=== PATIENT | male | born 1960 | race Caucasian/White ===

== ENCOUNTER 2018-05-10 12:06 | Emergency (ER) | payer OTHER ==
[~2018-05-10] VITALS: Ht 177.8 cm; Wt 100.7 kg
[~2018-05-10 12:06] MED LIST: ALBU2.5V IH; AMLO5TAB PO; ASPI81CT89 PO; ATOR40TA PO; CLON1TAB PO; DIVA250E1 PO; DIVA500T1 PO; GLIP10TA3 PO; METF500T2 PO; NICO1PAT16 TP; OLAN2.5T1 PO; PAX20 PO; TEMA15CA24 PO
--- NOTE | 2018-05-10 12:06 | NUR ---
PT BIBA BLS TO BED 9
[2018-05-10 12:15] VITALS: BP 124/73
--- NOTE | 2018-05-10 12:25 | NUR ---
56 y/o M. STATES ANXIETY DUE TO CURRENT LIVING CONDITIONS. STATES PEOPLE ARE "STEALING FROM HIM AND DOING DRUGS AROUND HIM ALL THE TIME". DENIES PAIN. VSS. DRY COUGH NOTED PATIENT STATES HE HAS BEEN SMOKING FOR MANY YEARS. DENIES N/V/D; SKIN IS PINK/WARM/DRY; AAOX4 WITH EVEN AND STEADY GAIT; LUNGS CLEAR BL; HR EVEN AND REGULAR; PT DENIES ANY FEVER, CP, SOB, OR COUGH AT THIS TIME; PATIENT STATES PAIN OF 0/10 AT THIS TIME; VSS; PATIENT POSITIONED FOR COMFORT; HOB ELEVATED; BEDRAILS UP X2; BED DOWN. ER MD MADE AWARE OF PT STATUS.
--- NOTE | 2018-05-10 13:52 | NUR ---
SPOKE TO ANASTACIO FROM BRIEF WRITER AND WILL COME TO SEE PATIENT. PATIENT MADE AWARE.
--- NOTE | 2018-05-10 14:19 | NUR ---
Spoke with Daisy fernandez. stated that the patient has an assigned public conservator and thats who he would need to contact to find a new place to live. tried to explain that to the patient he did not state understand. will call Daisy to have her follow up.
--- NOTE | 2018-05-10 14:24 | NUR ---
Spoke with public Starriser office @[phone]. She stated that the patient has called 10 times today and has been told that they will call him back when his conservator gets back into the office. But he just keeps calling them.
--- NOTE | 2018-05-10 14:27 | NUR ---
ANASTACIO FROM MANAGER UNIT,WILL COME SEE THE PATIENT.
--- NOTE | 2018-05-10 14:50 | NUR ---
VERNA FROM HOME SECURITY ALARM INSTALLER SEEN PATIENT AND GAVE INSTRUCTIONS TO PATIENT
--- NOTE | 2018-05-10 14:57 | NUR ---
Senior Specialist Note: I called [facility] to ask if patient is self responsible or conserved, phone line was busy. Patient's face sheet currently has "Clayton Lissyeddie" listed as patient's brother. I dialed , Natalie from Public Guardian office answered. Per quality associate Natalie, patient is conserved and his public guardian is Clayton Amador. She stated Clayton is currently not available, however, officer of duty Sonia is available. I spoke with Sonia, she stated patient will have to return to [facility] upon discharge.
--- NOTE | 2018-05-10 15:00 | NUR ---
Patient discharged with v/s stable. Written and verbal after care instructions given and explained. Patient verbalized understanding. Ambulatory with steady gait. All questions addressed prior to discharge. Advised to follow up with PMD. [facility] CALLED FOR PATIENT.
[2018-05-10 15:19] VITALS: BP 124/73
--- NOTE | 2018-05-10 15:20 | NUR ---
[facility] PROVIDED TO PATIENT.
--- NOTE | 2018-05-10 15:45 | NUR ---
SPOKE TO NURSE KNOWLES AT [facility] INFORMING HER THAT PATIENT IS RETURNING TO THE FACILITY.
--- NOTE | 2018-05-10 15:57 | NUR ---
ANISHA,PUBLIC GUARDIAN CALLED AND INFORMED ME THAT HE WILL CALL ELENI FROM [facility] THAT SARAHY MORALES IS OK TO RETURN TO THE FACILITY. ANISHA WILL ALSO INFORM THE PATIENT. STILL WAITING FOR THE TAXI
--- NOTE | 2018-05-10 16:00 | NUR ---
[facility] PICKED UP PATIENT
== END 2018-05-10 15:20 | disposition home or self-care (01) ==
LOC: MED 12:06
DX: F41.9 Anxiety disorder, unspecified (principal); F17.200 Nicotine dependence, unspecified, uncomplicated; E11.9 Type 2 diabetes mellitus without complications; I10 Essential (primary) hypertension; Z79.899 Other long term (current) drug therapy; Z88.8 Allergy status to other drugs, medicaments and biological substances; Z79.51 Long term (current) use of inhaled steroids; Z79.84 Long term (current) use of oral hypoglycemic drugs
CPT/HCPCS: 99284

== ENCOUNTER 2018-05-12 15:24 | Inpatient (IN) | payer OTHER ==
[~2018-05-12] VITALS: Ht 177.8 cm; Wt 102.1 kg
[2018-05-12 15:35] VITALS: BP 140/70
[2018-05-12] MEDS ORDERED: LORazepam 2 MG/ML VIAL IVP ONE (17:10)
[2018-05-12 17:42] LABS: BASOPHILS % (AUTO) 0.3 % (0.0-2.0); EOSINOPHILS # (AUTO) 0.1 K/uL (0-0.4); HEMATOCRIT 38.7 % (36-52); HEMOGLOBIN 12.8 g/dL (12.0-18.0); LYMPHOCYTES # (AUTO) 2.1 K/uL (2.0-11.5); LYMPHOCYTES % (AUTO) 28.3 % (20.5-51.1); MEAN CORPUSCULAR HEMOGLOBIN 31 pg (27-31); MEAN CORPUSCULAR HGB CONC 33 g/dL (33-37); MEAN CORPUSCULAR VOLUME 94.5 fL (80-94); MONOCYTES # (AUTO) 0.6 K/uL (0.8-1.0); MONOCYTES % (AUTO) 7.3 % (1.7-9.3); NEUTROPHILS # (AUTO) 4.7 K/uL (1.8-7.7); NEUTROPHILS % (AUTO) 62.1 % (42.2-75.2); PLATELET COUNT (AUTO) 238 K/uL (140-450); RED CELL DISTRIBUTION WIDTH 14.6 % (11.6-13.7); WHITE BLOOD COUNT (AUTO) 7.6 K/uL (4.8-10.8)
[2018-05-12 17:49] LABS: CARBON DIOXIDE 31.7 mmol/L (21-32); CHLORIDE 106 mmol/L (98-107); CREATININE 0.9 mg/dL (0.7-1.3); GFR ARICAN-AMERICAN 111 mL/min (>90); GLUCOSE 112 mg/dL (74-106); POTASSIUM 3.7 mmol/L (3.5-5.1); SODIUM SERUM 142 mmol/L (136-145); UREA NITROGEN, BLOOD 11 mg/dL (7-18)
[2018-05-12 17:58] LABS: ALBUMIN 2.7 g/dL (3.4-5.0); ASPARTATE AMINOTRANSFERASE 36 U/L (15-37); SALICYLATE 3.3 mg/dL (2.8-20.0); TOTAL BILIRUBIN 0.4 mg/dL (0.0-1.0)
[2018-05-12 18:08] LABS: ACETAMINOPHEN < 0.5 ug/ml (10-30)
--- NOTE | 2018-05-12 19:06 | NUR ---
PATIENT RETURNED FROM CT AT THIS TIME.
--- NOTE | 2018-05-12 19:06 | NUR ---
Liss silver in ED - 05/12/18 at 1917 by JF PT RETURN FROM RADIOLOGY
--- NOTE | 2018-05-12 19:07 | NUR ---
PT BACK FROM CT. RECEIVED REPORT FROM AM NURSE. PT RESTING IN BED COMFORTABLY, VSS, RR EVEN AND UNLABORED. ALL NEEDS MET AT THIS TIME.
[2018-05-12 20:11] LABS: BARBITURATE, URINE NEG. ng/ml (NEG <=200); BENZODIAZEPINE, URINE NEG. ng/mL (NEG <=200); CANNABINOID, URINE NEG. ng/mL (NEG <=50); COCAINE, URINE NEG. ng/mL (NEG <=300); OPIATE, URINE NEG. ng/mL (NEG <=2000); PHENCYCLIDINE SCREEN,URINE NEG. ng/mL (NEG <=25)
[2018-05-12 20:24] LABS: APPEARANCE,URINE CLEAR (CLEAR); BILIRUBIN,URINE NEGATIVE (NEGATIVE); BLOOD, URINE NEGATIVE (NEGATIVE); COLOR,URINE YELLOW (YELLOW); LEUKOCYTE ESTERASE ,URINE NEGATIVE (NEGATIVE); NITRITE, URINE NEGATIVE (NEGATIVE); UGLUCOSE NEGATIVE (NEGATIVE)
[2018-05-12] MEDS: NACL 0.9% 1,000 ML IV SCH (20:43)
[2018-05-12] MEDS ORDERED: DOCUSATE SODIUM 100 MG GELCAP PO PRN (20:45)
[2018-05-12] MEDS ORDERED: ONDANSETRON 4 MG/2 ML VIAL IM/IVP PRN (20:45)
[2018-05-12] MEDS ORDERED: ACETAMINOPHEN 325 MG TAB PO PRN (20:45)
[2018-05-12 21:14] LABS: PROTHROMBIN TIME 10.2 secs (10.8-13.4)
--- NOTE | 2018-05-12 21:25 | NUR ---
Patient will be admitted to care of DR. STEPHENS. Admited to TELE. Will go to room 107B. Belongings list completed. Report to STAR LEACH.
[2018-05-12 21:28] LABS: CHOL/HDL RATIO 3.2 (1-4.5); FREE T4 (FREE THYROXINE) 0.9 ng/dL (0.76-1.46); MAGNESIUM 1.2 mg/dL (1.8-2.4); THYROID STIMULATING HORMONE 1.04 uIU/mL (0.34-3.74)
--- NOTE | 2018-05-12 21:30 | NUR ---
RECEIVED FROM ER PER VIMAL AWAKE AND ALERT AT THIS TIME. DX. OF SEIZURE, HYPOGLYCEMIA. SKIN INTACT. NO EDEMA CTAB. TELEMETRY MONITORING. CARE PLANS FOR THE NIGHT DISCUSSED WITH HIM AND CALL LIGHT WITH IN REACH. ORIENTED X 4. CLEAR SPEECH.
[2018-05-12] MEDS ORDERED: OLAN15TA1 PO (21:57)
[2018-05-12] MEDS ORDERED: DEXTROSE 50% 50 ML SYR IVP PRN (22:00)
[2018-05-12] MEDS ORDERED: INSULIN LISPRO SLIDING SCALE 100 UNITS/ML VIAL SUBQ PRN (22:00)
[2018-05-12] MEDS ORDERED: MAG SULF 2000 MG/WATER PREMIX 50 ML IV SCH (22:30)
--- NOTE | 2018-05-12 23:40 | NUR ---
PATIENT UNABLE TO PERFORM INCENTIVE SPIROMETER, , UNIT LEFT AT BEDSIDE
[2018-05-13 01:20] VITALS: BP 111/76
--- NOTE | 2018-05-13 01:25 | NUR ---
PT. SLEEPING WELL. NO COMPLAINTS DONE. TELEMETRY MONITORING. CALL LIGHT WITH IN REACH.
[2018-05-13 04:49] VITALS: BP 140/82
[2018-05-13] MEDS: NACL 0.9% 1,000 ML IV SCH ×2 (05:57→10:35)
[2018-05-13] MEDS: BLOOD GLUCOSE MONITORING 1 DEV DEV FS SCH ×4 (05:57→21:30)
[2018-05-13 07:01] LABS: BASOPHILS % (AUTO) 0.2 % (0.0-2.0); EOSINOPHILS # (AUTO) 0.2 K/uL (0-0.4); EOSINOPHILS % (AUTO) 3.3 % (0.0-4.0); HEMATOCRIT 40.5 % (36-52); HEMOGLOBIN 13.5 g/dL (12.0-18.0); LYMPHOCYTES # (AUTO) 2.1 K/uL (2.0-11.5); LYMPHOCYTES % (AUTO) 32.6 % (20.5-51.1); MEAN CORPUSCULAR HEMOGLOBIN 31 pg (27-31); MEAN CORPUSCULAR HGB CONC 33 g/dL (33-37); MEAN CORPUSCULAR VOLUME 93.6 fL (80-94); MONOCYTES # (AUTO) 0.6 K/uL (0.8-1.0); MONOCYTES % (AUTO) 9.1 % (1.7-9.3); NEUTROPHILS # (AUTO) 3.5 K/uL (1.8-7.7); NEUTROPHILS % (AUTO) 54.8 % (42.2-75.2); PLATELET COUNT (AUTO) 226 K/uL (140-450); RED BLOOD CELL COUNT(AUTO) 4.33 MIL/uL (4.20-6.10); RED CELL DISTRIBUTION WIDTH 14.6 % (11.6-13.7); WHITE BLOOD COUNT (AUTO) 6.4 K/uL (4.8-10.8)
[2018-05-13 07:15] LABS: ANION GAP 8.5 (8-16); CARBON DIOXIDE 32.5 mmol/L (21-32); CREATININE 0.7 mg/dL (0.7-1.3)
[2018-05-13 07:16] LABS: MAGNESIUM 1.8 mg/dL (1.8-2.4); PHOSPHORUS 3.4 mg/dL (2.5-4.9)
--- NOTE | 2018-05-13 07:20 | NUR ---
RECEIVED PT REPORT FROM OPTOMETRIC TECH RN. PT IS AAOX3. DX. OF SEIZURE, HYPOGLYCEMIA. ON TELE. IV TO THE RIGHT FA 20G, INFUSING NS, ASYMPTOMATIC. PT IS AMB WITH STANDBY ASSISTANCE. BED ALARM ON, FALL PRECAUTION IN PLACE. CALL LIGHT WITHIN REACH.
--- NOTE | 2018-05-13 07:22 | NUR ---
SLEPT WELL. NO SOB. NO SEIZURES NOTED THIS SHIFT. TELEMETRY MONITORING. ENDORSED TO THE NEXT RN FOR CONTINUITY OF CARE. PT.
[2018-05-13 08:00] VITALS: BP 146/79
--- NOTE | 2018-05-13 08:18 | NUR ---
PATIENT HAS BEEN SCREENED AND CATEGORIZED MODERATE NUTRITION RISK. PATIENT WILL BE SEEN WITHIN 3-5 DAYS OF ADMISSION. 05/15/18 05/17/[address]
--- NOTE | 2018-05-13 08:36 | NUR ---
PATIENT PREVIOUSLY TRANSFERRED FROM 107-B TO 126-B SUPPLEMENTAL OXYGEN NOT ON/CONNECTED SATURATION 88% ON ROOM AIR PATIENT C/O SOB AT THIS TIME
[2018-05-13] MEDS: ALBUTEROL SULFATE/IPRATROPIU 3 ML SOL IH PRN ×3 (08:43→20:28)
[2018-05-13] MEDS: metFORMIN 500 MG TAB PO SCH ×2 (08:53→16:31)
[2018-05-13] MEDS: PARoxetine 20 MG TAB PO SCH (08:53)
[2018-05-13] MEDS: ASPIRIN 81 MG TAB.CHEW PO SCH (08:54)
[2018-05-13] MEDS ORDERED: NICOTINE TRANSD SYS 14 MG/24 HR PATCH TD SCH (09:00)
[2018-05-13] MEDS ORDERED: OLANZapine 2.5 MG TAB PO SCH (09:00)
[2018-05-13] MEDS ORDERED: DIVALPROEX 500 MG TABEC PO SCH (09:00)
[2018-05-13] MEDS ORDERED: DIVALPROEX 500 MG TABER PO SCH ×2 (09:00)
--- NOTE | 2018-05-13 09:06 | NUR ---
SCHEDULED MED HAS BEEN GIVEN. NICOTINE PATCHED APPLIED TO RIGHT ARM.
[2018-05-13] MEDS: amLODIPine 5 MG TAB PO SCH (09:07)
[2018-05-13] MEDS: NICOTINE TRANSD SYS 21 MG/24 HR PATCH TD SCH (09:13)
[2018-05-13] MEDS: HYDROcodone/APAP 7.5/325 MG 1 TAB PO PRN ×3 (11:32→21:24)
--- NOTE | 2018-05-13 11:45 | NUR ---
TOLERATED INCENTIVE SPIROMETRY THERAPY WELL WITHOUT INCIDENT ENCOURAGED PATIENT WITH ACKNOWLEDGEMENT TO USE INCENTIVE SPIROMETRY EVERY 1-2 HOURS WHILE AWAKE
[2018-05-13 12:00] VITALS: BP 136/77
--- NOTE | 2018-05-13 15:16 | NUR ---
RECEIVED CALL FROM PT'S CONSERVATOR, ANISHA. DORIAN TO GIVE PNA VAC AT [place]. ANISHA STATED PT ALREADY HAD FLU FOR THIS YEAR. ANISHA WILL FAX US CONSERVATORY LETTER.
[2018-05-13 16:00] VITALS: BP 111/66
[2018-05-13] MEDS ORDERED: KETOROLAC 30 MG/ML VIAL IVP SCH (18:30)
--- NOTE | 2018-05-13 19:30 | NUR ---
ENDORSED PT TO ENVIRONMENTAL HEALTH SANITARIAN RN. PT IN STABLE CONDITION.
--- NOTE | 2018-05-13 19:31 | NUR ---
RECEIVED REPORT FROM KOLTON AT BEDSIDE FOR CONTINUITY OF CARE. PT AAOX3. NO SOB NO S/S OF DISTRESS ON O2 NC 2L. IV NOTED RFA 20G NS AT 60ML. BED LOWERED CALL LIGHT WITHIN REACH. AMBULATORY. URINAL AT BEDSIDE. WILL CONTINUE TO MONITOR. POSSIBLE D/C TOMORROW.
[2018-05-13 20:00] VITALS: BP 122/77
[2018-05-13] MEDS ORDERED: PNEUMOCOCCAL VACCINE 23 MCG/0.5 ML VIAL IMVAC ONE (20:00)
[2018-05-13] MEDS ORDERED: DIVALPROEX 250 MG TABEC PO SCH (21:00)
[2018-05-13] MEDS ORDERED: ZOLPIDEM 5 MG TAB PO ONE (21:05)
[2018-05-13] MEDS: TEMAZEPAM 15 MG CAP PO SCH (21:23)
[2018-05-13] MEDS: OLANZapine 5 MG TAB PO SCH (21:25)
[2018-05-13] MEDS: ATORVASTATIN 20 MG TAB PO SCH (21:26)
[2018-05-13] MEDS: DIVALPROEX 250 MG TABEC PO SCH (21:27)
--- NOTE | 2018-05-13 21:30 | NUR ---
PT INSISTED HE TAKES RESTRIL 30MG AND TRAZADONE 50 MG. PT FROM [facility] AND MEDS ARE NOT THE SAME FROM PAPER [facility]. ADVISE PT WE WILL GIVE HIM RESTRIL 15MG AND AMBIEN 5MG TO HELP SLEEP PER MD. PT AGREED AND TOOK MEDS.
--- NOTE | 2018-05-13 22:24 | NUR ---
ADMIN NORCO 1 HR AGO FOR PAIN. PAIN MED EFFECTIVE PT HAS NO PAIN AT THIS TIME. WILL CONTINUE TO MONITOR.
[2018-05-14] VITALS: BP 106/67
--- NOTE | 2018-05-14 | NUR ---
NO SOB NO S/S OF DISTRESS ON RA. WILL CONTINUE TO MONITOR.
[2018-05-14 04:00] VITALS: BP 136/81
[2018-05-14 06:17] LABS: T4 (THYROXINE) 7.5 ug/dL (4.5-12.0)
[2018-05-14] MEDS: BLOOD GLUCOSE MONITORING 1 DEV DEV FS SCH ×4 (07:28→21:25)
[2018-05-14 07:35] LABS: BASOPHILS % (AUTO) 0.3 % (0.0-2.0); EOSINOPHILS # (AUTO) 0.2 K/uL (0-0.4); EOSINOPHILS % (AUTO) 3.4 % (0.0-4.0); HEMATOCRIT 40.1 % (36-52); HEMOGLOBIN 13.4 g/dL (12.0-18.0); LYMPHOCYTES # (AUTO) 2.2 K/uL (2.0-11.5); LYMPHOCYTES % (AUTO) 32.8 % (20.5-51.1); MEAN CORPUSCULAR HEMOGLOBIN 31 pg (27-31); MEAN CORPUSCULAR HGB CONC 33 g/dL (33-37); MEAN CORPUSCULAR VOLUME 93.4 fL (80-94); MONOCYTES # (AUTO) 0.6 K/uL (0.8-1.0); MONOCYTES % (AUTO) 8.8 % (1.7-9.3); NEUTROPHILS # (AUTO) 3.7 K/uL (1.8-7.7); NEUTROPHILS % (AUTO) 54.7 % (42.2-75.2); PLATELET COUNT (AUTO) 218 K/uL (140-450); RED BLOOD CELL COUNT(AUTO) 4.29 MIL/uL (4.20-6.10); RED CELL DISTRIBUTION WIDTH 14.5 % (11.6-13.7); WHITE BLOOD COUNT (AUTO) 6.8 K/uL (4.8-10.8)
--- NOTE | 2018-05-14 07:49 | NUR ---
ENDORSED REPORT TO DAYSCOFT NURSE FOR CONTINUITY OF CARE.
--- NOTE | 2018-05-14 07:50 | NUR ---
RECEIVED REPORT FROM BUILDING CLEANING SUPERVISOR RN. PT RESTING IN BED COMFORTABLY. A/O X4. VERBAL. SKIN DRY AND WARM TO TOUCH. LUNGS CLEAR ON AUSCULTATION. RIGHT FOREARM 20G. NS RUNNING AT 60 ML/HR. INTACT IV LINE. ABDOMEN SOFT ROUND AND NON TENDER. ACTIVE BOWEL SOUND. SKIN INTACT. DENIES PAIN. KEPT HOB ELEVATED. BED IN LOW POSITION, LOCKED. WILL CONTINUE TO MONITOR.
[2018-05-14 07:58] LABS: ANION GAP 10.5 (8-16); CARBON DIOXIDE 30.5 mmol/L (21-32); CREATININE 0.8 mg/dL (0.7-1.3)
[2018-05-14 08:00] VITALS: BP 137/84
[2018-05-14 08:01] LABS: MAGNESIUM 1.5 mg/dL (1.8-2.4); PHOSPHORUS 4.4 mg/dL (2.5-4.9)
--- NOTE | 2018-05-14 08:30 | NUR ---
PT VOICED HE WANTS TO BE DISCHARGED, REMOVE IV LINE. EXPLAINED PT ABOUT CONDITION AND NEED OF ORDER TO BE DISCHARGED. PT STATED HE WANTS TO TALK WITH ABOUT HIS DISCHARGE. DR. LEVIN MADE AWARE. DOCTOR EXPLAINED PT ABOUT HIS CONDITION, DISCHARGE PLAN AND PLACEMENT. PT AGREED.
[2018-05-14] MEDS ORDERED: MAG SULF 2000 MG/WATER PREMIX 100 ML IV ONE (09:00)
[2018-05-14] MEDS: ASPIRIN 81 MG TAB.CHEW PO SCH (09:09)
[2018-05-14] MEDS: metFORMIN 500 MG TAB PO SCH ×2 (09:09→18:20)
[2018-05-14] MEDS: DIVALPROEX 250 MG TABEC PO SCH ×2 (09:13→20:44)
[2018-05-14] MEDS: PARoxetine 20 MG TAB PO SCH (09:14)
[2018-05-14] MEDS: amLODIPine 5 MG TAB PO SCH (09:14)
[2018-05-14] MEDS: NICOTINE TRANSD SYS 21 MG/24 HR PATCH TD SCH (09:15)
[2018-05-14] MEDS ORDERED: OLANZapine 5 MG TAB PO SCH ×2 (09:28→10:00)
[2018-05-14] MEDS ORDERED: MAGNESIUM SULFATE 4GM in STERILE WATER 100 ML PREMIX IV SCH (09:30)
--- NOTE | 2018-05-14 09:34 | NUR ---
ADMINISTERED EDICINE SCHEDULED. TOLERATING WELL.
--- NOTE | 2018-05-14 10:24 | NUR ---
RECEIVED CALL FROM PUBLIC GUARDIAN GLENDY. MADE AWARE ABOUT PT VOICING: HE WANTS TO LEAVE. SAID WANTS TO TALK WITH THE PATIENT. HAVE HER TALK WITH THE PATIENT.
--- NOTE | 2018-05-14 11:56 | NUR ---
RESTING IN BED. NO CHANGE IN LOC. WILL CONTINUE TO MONITOR.
[2018-05-14 12:00] VITALS: BP 136/86
[2018-05-14] MEDS: NACL 0.9% 1,000 ML IV SCH (12:33)
--- NOTE | 2018-05-14 13:54 | NUR ---
SLEEPING IN BED AT THIS TIME.
[2018-05-14] MEDS: HYDROcodone/APAP 7.5/325 MG 1 TAB PO PRN ×2 (14:29→20:44)
--- NOTE | 2018-05-14 15:36 | NUR ---
PT AMBULATED IN HALLWAY WITH STEADY GAIT WITHOUT ASSISTANCE.
[2018-05-14 16:00] VITALS: BP 117/76
--- NOTE | 2018-05-14 16:55 | NUR ---
REPORT GIVEN TO STAR HOLLEY FOR CONTINUITY OF CARE. PT ON STABLE CONDITION.
--- NOTE | 2018-05-14 19:00 | NUR ---
RECEIVED BEDSIDE REPORT FROM STAR HOLLEY, PATIENT IN BED, ON RA, NO SIGNS OF ACUTE DISTRESS, ASKED TO SHOWER WILL GET ORDERS, IV IN RIGHT SC 20 G INFUSING NS AT 60 ML/HR. ON FALL PRECAUTIONS, ASKING FOR SLEEPING MEDICATION. STATED "I WILL SHOOT THE DOCTORS IF THEY DON'T GIVE ME MY MEDS". CHARGE NURSE AWARE, SECURITY GUZMÁN, WILL CONTINUE TO MONITOR.
[2018-05-14] MEDS: ALBUTEROL SULFATE/IPRATROPIU 3 ML SOL IH PRN (19:19)
--- NOTE | 2018-05-14 19:30 | NUR ---
PATIENT SHOWERED, STEADY GAIT NO SEIZURE ACTIVITY
[2018-05-14 20:00] VITALS: BP 120/68
--- NOTE | 2018-05-14 20:44 | NUR ---
PATIENT C/O PAIN MEDICATED WITH NORCO ACCORDING TO MD ORDER.
[2018-05-14] MEDS: OLANZapine 5 MG TAB PO SCH (20:45)
[2018-05-14] MEDS: TEMAZEPAM 15 MG CAP PO SCH (20:45)
[2018-05-14] MEDS: ATORVASTATIN 20 MG TAB PO SCH (20:53)
[2018-05-14] MEDS ORDERED: ZOLPIDEM 5 MG TAB PO SCH (21:00)
--- NOTE | 2018-05-14 21:28 | NUR ---
TALKED TO RESIDENTS FOR ORDER FOR AMBIEN, GAVE AMBIEN ACCORDING TO MD ORDER. TOLD PATIENT DOES NOT TAKE TRAMADOL AND WILL NOT GIVE.
--- NOTE | 2018-05-14 22:30 | NUR ---
PATIENT SLEEPING IN BED, NO SIGNS OF DISTRESS, BED ALARM ON.
[2018-05-15] VITALS: BP 118/60
--- NOTE | 2018-05-15 | NUR ---
V/S TAKEN ALL WITHIN BASELINE DENIES PAIN
--- NOTE | 2018-05-15 02:00 | NUR ---
SLEEPING IN BED NO SIGNS OF DISTRESS, CALL LIGHT WITHIN REACH.
[2018-05-15 04:00] VITALS: BP 110/70
--- NOTE | 2018-05-15 04:30 | NUR ---
V/S TAKEN ALL WITHIN BASELINE WILL CONTINUE TO MONITOR
[2018-05-15] MEDS: NACL 0.9% 1,000 ML IV SCH (05:13)
[2018-05-15] MEDS: BLOOD GLUCOSE MONITORING 1 DEV DEV FS SCH ×3 (06:28→16:46)
--- NOTE | 2018-05-15 07:00 | NUR ---
PATIENT REFUSED ACUTE CHECK STATED "CHECK IT LATER".
--- NOTE | 2018-05-15 07:30 | NUR ---
ENDORSED PATIENT TO DAY SHIFT NURSE PATIENT STABLE
--- NOTE | 2018-05-15 07:31 | NUR ---
RECEIVED BEDSIDE REPORT FROM SPRAY CREW NURSE. PATIENT IS SLEEPING. NO SIGNS OF DISTRESS ON RA. URINAL AT BEDSIDE. FALL RISK PROTOCOL IN PLACE. SKIN IS INTACT. IV ON R AC 20G INFUSING NS AT 60. CLEAN, DRY AND INTACT. TELE MONITOR IN PLACE. BED IN LOW POSITION. CALL LIGHT WITHIN REACH. WILL CONTINUE TO MONITOR.
[2018-05-15 07:50] LABS: BASOPHILS % (AUTO) 0.4 % (0.0-2.0); EOSINOPHILS # (AUTO) 0.2 K/uL (0-0.4); EOSINOPHILS % (AUTO) 3.9 % (0.0-4.0); HEMATOCRIT 40.4 % (36-52); HEMOGLOBIN 13.4 g/dL (12.0-18.0); LYMPHOCYTES # (AUTO) 2.1 K/uL (2.0-11.5); LYMPHOCYTES % (AUTO) 35.6 % (20.5-51.1); MEAN CORPUSCULAR HEMOGLOBIN 31 pg (27-31); MEAN CORPUSCULAR HGB CONC 33 g/dL (33-37); MEAN CORPUSCULAR VOLUME 93.4 fL (80-94); MONOCYTES # (AUTO) 0.6 K/uL (0.8-1.0); NEUTROPHILS # (AUTO) 2.9 K/uL (1.8-7.7); NEUTROPHILS % (AUTO) 50.1 % (42.2-75.2); PLATELET COUNT (AUTO) 222 K/uL (140-450); RED BLOOD CELL COUNT(AUTO) 4.32 MIL/uL (4.20-6.10); RED CELL DISTRIBUTION WIDTH 14.7 % (11.6-13.7); WHITE BLOOD COUNT (AUTO) 5.8 K/uL (4.8-10.8)
[2018-05-15 08:00] VITALS: BP 124/72
[2018-05-15 08:00] LABS: ANION GAP 5.7 (8-16); CARBON DIOXIDE 33.1 mmol/L (21-32); CREATININE 0.7 mg/dL (0.7-1.3); POTASSIUM 3.8 mmol/L (3.5-5.1)
[2018-05-15 08:05] LABS: MAGNESIUM 1.7 mg/dL (1.8-2.4)
[2018-05-15] MEDS ORDERED: DEPER500 PO (08:23)
[2018-05-15] MEDS: DIVALPROEX 250 MG TABEC PO SCH (08:39)
[2018-05-15] MEDS: metFORMIN 500 MG TAB PO SCH ×2 (08:40→17:31)
[2018-05-15] MEDS: amLODIPine 5 MG TAB PO SCH (08:40)
[2018-05-15] MEDS: ASPIRIN 81 MG TAB.CHEW PO SCH (08:40)
[2018-05-15] MEDS: PARoxetine 20 MG TAB PO SCH (08:41)
[2018-05-15] MEDS: NICOTINE TRANSD SYS 21 MG/24 HR PATCH TD SCH (08:42)
--- NOTE | 2018-05-15 08:44 | NUR ---
ADMINISTERED MEDS. PATIENT TOLERATED WELL. NICOTINE PATCHED REMOVED FROM R ARM. NEW NICOTINE PATCH ON L ARM. WILL CONTINUE TO MONITOR THE PATIENT
--- NOTE | 2018-05-15 10:09 | NUR ---
CALLED [facility]. THEY SAID PATIENT HAS A 30 DAY HOLD. SHE SAID THEY WILL CALL ME BACK IN AN HOUR TO SEE IF THEY HAVE A BED. ELEIN FROM ADMINISTRATION WILL CALL ME. CALL BACK NUMBER GIVEN
[2018-05-15] MEDS: HYDROcodone/APAP 7.5/325 MG 1 TAB PO PRN ×2 (10:14→14:38)
--- NOTE | 2018-05-15 10:21 | NUR ---
ADMINISTERED PRN PAIN MED. PATIENT TOLERATED WELL
[2018-05-15] MEDS ORDERED: MAGNESIUM OXIDE 400 MG TAB PO SCH (11:00)
--- NOTE | 2018-05-15 11:00 | NUR ---
PATIENT WANTS IV REMOVED. ASKED DR ALONSO SHE SAID IT IS OK. IV REMOVED. TIP INTACT. PATIENT DOWNGRADED TO MED SURGE. TELE REMOVED
--- NOTE | 2018-05-15 12:04 | NUR ---
ADMINISTERED MAG OX. PATIENT TOLERATED WELL. WILL CONTINUE TO MONITOR THE PATIENT
--- NOTE | 2018-05-15 12:12 | NUR ---
BLOOD SUGAR 69. PATIENT EATING LUNCH REQUESTING MILK. WILL CONTINUE TO MONITOR THE PATIENT
--- NOTE | 2018-05-15 14:45 | NUR ---
PATIENT IS ANGRY. HE SAID HE WANTS TO LEAVE BECAUSE HIS MIMEOGRAPHER TIME IS AT 5:30 AND HE WANTS TO LEAVE ALREADY IN A TAXI. PER VERNA THE SENIOR CARE SAID IT IS BETTER FOR [facility] THAN TAXI [facility] [place]. HE IS MAD CAUSE HE WANTS CIGARETTES. NICOTINE PATCH IN PLACE.
--- NOTE | 2018-05-15 15:15 | NUR ---
1200 CALLED [facility] AND WAS INFORMED THAT [facility] SHEET MUSIC SALESPERSON WOULD NEED TO APPROVE PT RETURN HE WAS ISSUED A 30 DAY NOTICE AND IDENTIFIED HERSELF A STAFF MEMBER BUT WOULDN'T REVEAL HER NAME. SAID ELENI WOULD BE BACK SOON. 1400 CALLED [facility] AND WAS AGAIN INFORMED THAT ELENI IS NOT THERE. PLACED A CALL TO PUBLIC [facility] OFFICE AT [phone] AND SPOKE WITH ANISHA A [employer]ENTRAL OFFICE EQUIPMENT ENGINEER COVERING FOR PT'S PG KORI. PER ANISHA HE IS AWARE OF THE 30 DAY NOTICE AND HAS HAD A DISCUSSION WITH ELENI AND SHE IS AWARE THAT PT'S 30 DAYS IS NOT UP UNTIL THE 18TH OF THE MONTH AND THAT SHE CANNOT PREVENT PT FROM RETURNING. PER ANISHA THE PG IS IN THE PROCESS OF FINDING PT NEW PLACEMENT. STATED THAT PT HAS BEEN MOVED MANY TIMES DUE TO SOME OF HIS BEHAVIORS SUCH CALLING 911 BUT PT HAS NEVER DISPLAYED AN AGGRESSION. PER ANISHA HE WOULD PREFER IF PT COULD BE SENT BY TRANSPORT OTHER THAN A TAXI. INFORMED HIM I WILL CALL FOR A W/C TRANSPORT. PER ANISHA HE WILL CONTACT [facility] AND INFORM THEM THAT PT IS RETURNING TODAY. CALLED [facility] [phone] AND SPOKE WITH DAVID AND SET UP A W/C TRANSPORT FOR 1730. WILL CONTACT [facility] FOR AUTH FOR TRANSPORT BUT UNTIL AUTH OBTAINED INSTRUCTED DAVID TO MAKE IT A [place] BILL.
[2018-05-15 16:00] VITALS: BP 139/75
--- NOTE | 2018-05-15 16:58 | NUR ---
PATIENT IS MAD BECAUSE HIS PANTS AND UNDERWEAR IS SOAKED. CALLED SECURITY. THEY BROUGHT HIM SOME NEW PANTS. EDUCATED PATIENT ON DISCHARGE, ABN S/SX, WHEN TO GO TO THE ER, EDUCATED ON MEDS, PATIENT HAS NO PCP TOLD HIM IT IS IMPORTANT TO CONTACT HIS INSURANCE AND FIND A PCP. FOLLOW UP W PCP IN A WEEK FOR DEPAKOTE LAB LEVELS. PATIENT VERBALIZED UNDERSTANDING AND SIGNED ALL PAPERWORK. PNA VACCINE GIVEN ON 05/13. DR ALONSO TO ORDER FLU VACCINE
[2018-05-15] MEDS ORDERED: INFLUENZA VIRUS VACCINE QUAD 0.5 ML SYR IMVAC PRN (17:05)
--- NOTE | 2018-05-15 17:15 | NUR ---
[facility] IS LATE. THEY ARE COMING AT 6PM.
[2018-05-15] MEDS ORDERED: oxyCODONE/APAP 5/325 MG 1 TAB TAB PO SCH (17:25)
[2018-05-15] MEDS ORDERED: LORazepam 2 MG/ML VIAL IM/IVP SCH (17:25)
--- NOTE | 2018-05-15 17:47 | NUR ---
ADMINISTERED PRN ANXIETY MEDS. PATIENT AGITATED THAT [facility] IS LATE. ADMINISTERED PRN PAIN MEDS AND FLU VACCINE. PATIENT TOLERATED WELL. WILL CONTINUE TO MONITOR THE PATIENT
--- NOTE | 2018-05-15 17:50 | NUR ---
GAVE SMALL REPORT TO , PATIENT LEFT IN WHEELCHAIR IN STABLE CONDITION
== END 2018-05-15 17:50 | disposition home or self-care (01) | DRG 100 ==
LOC: MED 15:24 → MTU 20:50 → MMU 05-13 08:35
PROVIDERS: ADMIT General Practice; ATTEND General Practice
PROC: 3E0234Z Introduction of Serum, Toxoid and Vaccine into Muscle, Percutaneous Approach (ICD-10-PCS; 2018-05-13)
PROC: 3E02340 Introduction of Influenza Vaccine into Muscle, Percutaneous Approach (ICD-10-PCS; principal; 2018-05-15)
DX: G40.909 Epilepsy, unspecified, not intractable, without status epilepticus (principal); E43 Unspecified severe protein-calorie malnutrition; E11.649 Type 2 diabetes mellitus with hypoglycemia without coma; E83.42 Hypomagnesemia; I10 Essential (primary) hypertension; F41.9 Anxiety disorder, unspecified; F17.210 Nicotine dependence, cigarettes, uncomplicated; E86.0 Dehydration; E78.2 Mixed hyperlipidemia; E66.9 Obesity, unspecified; G47.00 Insomnia, unspecified; J44.9 Chronic obstructive pulmonary disease, unspecified; F20.9 Schizophrenia, unspecified; Z68.32 Body mass index [BMI] 32.0-32.9, adult; Z23 Encounter for immunization; Z87.820 Personal history of traumatic brain injury; Z88.8 Allergy status to other drugs, medicaments and biological substances; Z79.84 Long term (current) use of oral hypoglycemic drugs; Z79.82 Long term (current) use of aspirin; Z79.899 Other long term (current) drug therapy
CPT/HCPCS: 36415; 70450; 71045; 80048; 80053; 80305; 81003; 81025; 82150; 82550; 82553; 82948; 83036; 83690; 83735; 83880; 84100; 84436; 84439; 84443; 84479; 84484; 85025; 85610; 85730; 87081; 90658; 90732; 94640; 96374; 99285; G0480; G0482; J1885; J2060; J3475; J7030; J7620

== ENCOUNTER 2018-05-16 15:36 | Emergency (ER) | payer OTHER ==
[~2018-05-16] VITALS: Ht 177.8 cm; Wt 103.4 kg
[~2018-05-16 15:36] MED LIST changes: -CLON1TAB PO; +DEPER500 PO; -DIVA250E1 PO; +OLAN15TA1 PO
[2018-05-16 15:42] VITALS: BP 130/85
--- NOTE | 2018-05-16 15:50 | NUR ---
57Y/M BROUGHT IN BY EMS FROM [facility], PT C/O SUICIDAL IDEATIONS. PT STATES HE HAS NO PLAN AT THIS TIME. HX; SCHIZOEFFECTIVE, BIPOLAR, DEPRESSION, ANXIETY, COPD, DM, HTN RX; METFORMIN, OLANZAPINE, ANLODIPINE, ATORVASTATIN, GLIPIZIDE, DEPAKOTE, MOM, PAXIL ,ALBUTEROL, NICOTINE PATCH
--- NOTE | 2018-05-16 15:57 | NUR ---
CALLED [facility] PER CHARGE NURSE GLORIA FOR 5150 EVALUATION.
--- NOTE | 2018-05-16 17:01 | NUR ---
néstor glass came down and did not put pt on a 5150 hold
--- NOTE | 2018-05-16 17:02 | NUR ---
pt refuse lab
[2018-05-16 18:00] LABS: BARBITURATE, URINE NEG. ng/ml (NEG <=200); BENZODIAZEPINE, URINE NEG. ng/mL (NEG <=200); CANNABINOID, URINE NEG. ng/mL (NEG <=50); COCAINE, URINE NEG. ng/mL (NEG <=300); OPIATE, URINE NEG. ng/mL (NEG <=2000); PHENCYCLIDINE SCREEN,URINE NEG. ng/mL (NEG <=25)
[2018-05-16 18:37] LABS: APPEARANCE,URINE CLEAR (CLEAR); BLOOD, URINE NEGATIVE (NEGATIVE); COLOR,URINE YELLOW (YELLOW); UGLUCOSE NEGATIVE (NEGATIVE)
[2018-05-16 18:38] LABS: BILIRUBIN,URINE NEGATIVE (NEGATIVE); LEUKOCYTE ESTERASE ,URINE NEGATIVE (NEGATIVE); NITRITE, URINE NEGATIVE (NEGATIVE)
[2018-05-16 19:01] LABS: RBC,URINE 0-5 (RARE) /HPF (0-5); WBC,URINE 0-5 (RARE) /HPF (0-5)
--- NOTE | 2018-05-16 19:13 | NUR ---
REPORT RECIEVED FROM DANIEL GRAVES
--- NOTE | 2018-05-16 20:46 | NUR ---
CALLED LAB. LAB STATES PT REFUSED BLOOD DRAW AT 1700. NOTIFIED. EXPLAINED TO PT THAT BLOOD DRAW IS REQUIRED WHILE ON HOLD FOR SUICIDAL IDEATION. PT VERBALIZED UNDERSTANDING. LABS DRAWN PER MD ORDERS. PT VSS. CONTINUE TO MONITOR.
[2018-05-16 20:57] LABS: BASOPHILS % (AUTO) 0.2 % (0.0-2.0); EOSINOPHILS # (AUTO) 0.1 K/uL (0-0.4); EOSINOPHILS % (AUTO) 1.3 % (0.0-4.0); HEMATOCRIT 39.2 % (36-52); HEMOGLOBIN 13.1 g/dL (12.0-18.0); LYMPHOCYTES % (AUTO) 27.2 % (20.5-51.1); MEAN CORPUSCULAR HEMOGLOBIN 31 pg (27-31); MEAN CORPUSCULAR HGB CONC 34 g/dL (33-37); MEAN CORPUSCULAR VOLUME 93.7 fL (80-94); MONOCYTES # (AUTO) 0.7 K/uL (0.8-1.0); MONOCYTES % (AUTO) 8.8 % (1.7-9.3); NEUTROPHILS # (AUTO) 4.6 K/uL (1.8-7.7); NEUTROPHILS % (AUTO) 62.5 % (42.2-75.2); PLATELET COUNT (AUTO) 229 K/uL (140-450); RED BLOOD CELL COUNT(AUTO) 4.18 MIL/uL (4.20-6.10); RED CELL DISTRIBUTION WIDTH 14.5 % (11.6-13.7); WHITE BLOOD COUNT (AUTO) 7.4 K/uL (4.8-10.8)
--- NOTE | 2018-05-16 21:00 | NUR ---
PT IN BED RESTING WITH VSS. POSITIONED FOR COMFORT. QUIET AND CALM. ER MD AWARE. CONTINUE TO MONITOR.
[2018-05-16 21:10] LABS: ANION GAP 8.2 (8-16); CARBON DIOXIDE 31.8 mmol/L (21-32); CHLORIDE 106 mmol/L (98-107); GFR ARICAN-AMERICAN 98 mL/min (>90); GLUCOSE 123 mg/dL (74-106); SODIUM SERUM 142 mmol/L (136-145); UREA NITROGEN, BLOOD 21 mg/dL (7-18)
[2018-05-16 21:16] LABS: ALBUMIN 2.8 g/dL (3.4-5.0); ASPARTATE AMINOTRANSFERASE 36 U/L (15-37); LIPASE 176 U/L (73-393); MAGNESIUM 1.6 mg/dL (1.8-2.4); TOTAL BILIRUBIN 0.4 mg/dL (0.0-1.0)
[2018-05-16 21:19] LABS: SALICYLATE < 2.8 mg/dL (2.8-20.0)
[2018-05-16 21:20] LABS: ACETAMINOPHEN < 0.5 ug/ml (10-30)
--- NOTE | 2018-05-16 22:00 | NUR ---
PT IN BED RESTING WITH VSS. POSITIONED FOR COMFORT. QUIET AND CALM. ER MD AWARE. CONTINUE TO MONITOR.
--- NOTE | 2018-05-16 23:43 | NUR ---
TELEPSYCHE ACTIVATED. PLACED AT BEDSIDE. PT SPEAKING TO TELEPSYCHE DOCTOR.
--- NOTE | 2018-05-17 00:48 | NUR ---
KARL CELESTE RN ON PHONE WITH TELEPSYCHE DR VARGAS.
--- NOTE | 2018-05-17 00:56 | NUR ---
Dr. Garrido evaluating patient via TelePsych.
[2018-05-17] MEDS ORDERED: ACETAMINOPHEN EXTRA STRENGTH 500 MG TAB PO ONE (01:25)
[2018-05-17] MEDS ORDERED: DIVALPROEX 500 MG TABEC PO ONE (01:30)
[2018-05-17 01:35] VITALS: BP 111/52
--- NOTE | 2018-05-17 01:35 | NUR ---
Patient discharged with v/s stable. Written and verbal after care instructions given and explained. Patient verbalized understanding. Ambulatory with steady gait. All questions addressed prior to discharge. Advised to follow up with PMD.
== END 2018-05-17 01:35 | disposition home or self-care (01) ==
LOC: MED 15:36
DX: F31.9 Bipolar disorder, unspecified (principal); J44.9 Chronic obstructive pulmonary disease, unspecified; E11.9 Type 2 diabetes mellitus without complications; I10 Essential (primary) hypertension; F17.210 Nicotine dependence, cigarettes, uncomplicated; F41.9 Anxiety disorder, unspecified; Z79.899 Other long term (current) drug therapy; Z88.8 Allergy status to other drugs, medicaments and biological substances; Z79.82 Long term (current) use of aspirin; Z79.84 Long term (current) use of oral hypoglycemic drugs
CPT/HCPCS: 36415; 71045; 80053; 80305; 81001; 83690; 83735; 84484; 85025; 93005; 99285; G0480; G0482; Q0092

== ENCOUNTER 2018-05-17 17:32 | Emergency (ER) | payer OTHER ==
[~2018-05-17] VITALS: Ht 167.6 cm; Wt 98.9 kg
[2018-05-17 17:32] VITALS: BP 139/73
--- NOTE | 2018-05-17 17:45 | NUR ---
PT BIBA TO BED 10
--- NOTE | 2018-05-17 17:57 | NUR ---
mosusan from [facility] with c/o witnessed tonic clonic seizure that lasted approx 10 seconds. Patient is aox4 to person, place, time, and situation. GCS=15. No oral or urine/bowel incontinence on arrival. hx--COPD, DM, HTN, SZ, Anxiety, and Depression rx--Metformin, Depakote
--- NOTE | 2018-05-17 18:02 | NUR ---
PT GIVEN URINAL
--- NOTE | 2018-05-17 18:43 | NUR ---
pt asleep on stretcher in nad
--- NOTE | 2018-05-17 19:12 | NUR ---
report given to rachel jefferson
[2018-05-17] MEDS ORDERED: LORazepam 2 MG/ML VIAL IVP ONE (19:50)
[2018-05-17 20:40] LABS: BASOPHILS % (AUTO) 0.3 % (0.0-2.0); EOSINOPHILS # (AUTO) 0.1 K/uL (0-0.4); EOSINOPHILS % (AUTO) 0.6 % (0.0-4.0); HEMATOCRIT 40.2 % (36-52); HEMOGLOBIN 13.4 g/dL (12.0-18.0); LYMPHOCYTES # (AUTO) 3.2 K/uL (2.0-11.5); LYMPHOCYTES % (AUTO) 32.9 % (20.5-51.1); MEAN CORPUSCULAR HEMOGLOBIN 31 pg (27-31); MEAN CORPUSCULAR HGB CONC 33 g/dL (33-37); MEAN CORPUSCULAR VOLUME 94.5 fL (80-94); MONOCYTES # (AUTO) 0.8 K/uL (0.8-1.0); MONOCYTES % (AUTO) 7.9 % (1.7-9.3); NEUTROPHILS # (AUTO) 5.7 K/uL (1.8-7.7); NEUTROPHILS % (AUTO) 58.3 % (42.2-75.2); PLATELET COUNT (AUTO) 237 K/uL (140-450); RED BLOOD CELL COUNT(AUTO) 4.26 MIL/uL (4.20-6.10); RED CELL DISTRIBUTION WIDTH 14.7 % (11.6-13.7); WHITE BLOOD COUNT (AUTO) 9.7 K/uL (4.8-10.8)
--- NOTE | 2018-05-17 21:00 | NUR ---
Patient appears to be resting comfortably in bed. Respirations even and unlabored.
[2018-05-17 21:02] LABS: ANION GAP 11.6 (8-16); CARBON DIOXIDE 29.6 mmol/L (21-32); CREATININE 0.9 mg/dL (0.7-1.3); POTASSIUM 4.2 mmol/L (3.5-5.1)
[2018-05-17 21:33] LABS: APPEARANCE,URINE CLEAR (CLEAR); BLOOD, URINE NEGATIVE (NEGATIVE); COLOR,URINE YELLOW (YELLOW); UGLUCOSE NEGATIVE (NEGATIVE)
[2018-05-17 21:34] LABS: BILIRUBIN,URINE NEGATIVE (NEGATIVE); LEUKOCYTE ESTERASE ,URINE NEGATIVE (NEGATIVE); NITRITE, URINE NEGATIVE (NEGATIVE)
--- NOTE | 2018-05-17 21:57 | NUR ---
Patient discharged with v/s stable. Written and verbal after care instructions given and explained. Patient alert, oriented and verbalized understanding of instructions. Ambulatory with steady gait. All questions addressed prior to discharge. ID band removed. Patient advised to follow up with PMD. Rx of RESTORIL, TRAZADONE given. Patient educated on indication of medication including possible reaction and side effects. Opportunity to ask questions provided and answered. IV removed, catheter intact and site benign. Applied folded 4x4 gauze and tape to stop bleeding.
[2018-05-17 22:04] VITALS: BP 121/61
== END 2018-05-17 21:57 | disposition home or self-care (01) ==
LOC: MED 17:32
DX: G40.409 Other generalized epilepsy and epileptic syndromes, not intractable, without status epilepticus (principal); J45.909 Unspecified asthma, uncomplicated; E11.9 Type 2 diabetes mellitus without complications; I10 Essential (primary) hypertension; F17.200 Nicotine dependence, unspecified, uncomplicated; Z79.84 Long term (current) use of oral hypoglycemic drugs; Z79.82 Long term (current) use of aspirin; Z79.899 Other long term (current) drug therapy; Z88.8 Allergy status to other drugs, medicaments and biological substances
CPT/HCPCS: 36415; 70450; 80048; 81003; 82948; 85025; 96374; 99285; J2060

== ENCOUNTER 2018-05-18 00:01 | Emergency (ER) | payer OTHER ==
[~2018-05-18] VITALS: Ht 170.2 cm; Wt 99.8 kg
[2018-05-18 00:02] VITALS: BP 131/74
--- NOTE | 2018-05-18 02:05 | NUR ---
ASSUMED CARE OF PT AT THIS TIME. PT FOUND WALKING AROUND OUTSIDE AND WAS BROUGHT TO THE ER BY AMBULANCE. PT D/C FROM THE THIS ER 1 HOUR AGO AFTER FULL MEDICAL WORK-UP, CLEARED MEDICALLY, D/C HOME, AND GIVEN BUS PASS. PT IS A&OX4, ANSWERS ALL QUESTIONS APPROPRIATELY, AND AMBULATED TO BED 6 W/ STEADY GAIT FROM ER LOBBY. ABRASION NOTED TO FOREHEAD. PATIENT STATES PAIN OF 0/10; VSS; PATIENT POSITIONED FOR COMFORT; HOB ELEVATED; BEDRAILS UP X2; BED DOWN. ER MD MADE AWARE OF PT STATUS. WILL CONTINUE TO MONITOR.
[2018-05-18 04:00] VITALS: BP 128/78
== END 2018-05-18 04:00 | disposition home or self-care (01) ==
LOC: MED 00:01
DX: S00.81XA Abrasion of other part of head, initial encounter (principal); J44.9 Chronic obstructive pulmonary disease, unspecified; E11.9 Type 2 diabetes mellitus without complications; I10 Essential (primary) hypertension; G47.00 Insomnia, unspecified; F17.200 Nicotine dependence, unspecified, uncomplicated; Z79.899 Other long term (current) drug therapy; Z79.84 Long term (current) use of oral hypoglycemic drugs; Z79.82 Long term (current) use of aspirin; Z88.8 Allergy status to other drugs, medicaments and biological substances; W01.10XA Fall on same level from slipping, tripping and stumbling with subsequent striking against unspecified object, initial encounter; Y93.89 Activity, other specified; Y92.89 Other specified places as the place of occurrence of the external cause; Y99.8 Other external cause status
CPT/HCPCS: 99283

== ENCOUNTER 2018-05-27 10:51 | Emergency (ER) | payer OTHER ==
[~2018-05-27] VITALS: Ht 177.8 cm; Wt 104.3 kg
[2018-05-27 10:55] VITALS: BP 121/74
[2018-05-27 11:35] LABS: BASOPHILS % (AUTO) 0.4 % (0.0-2.0); EOSINOPHILS # (AUTO) 0.1 K/uL (0-0.4); EOSINOPHILS % (AUTO) 1.7 % (0.0-4.0); HEMATOCRIT 41.4 % (36-52); HEMOGLOBIN 13.7 g/dL (12.0-18.0); LYMPHOCYTES # (AUTO) 1.5 K/uL (2.0-11.5); LYMPHOCYTES % (AUTO) 25.4 % (20.5-51.1); MEAN CORPUSCULAR HEMOGLOBIN 32 pg (27-31); MEAN CORPUSCULAR HGB CONC 33 g/dL (33-37); MONOCYTES # (AUTO) 0.4 K/uL (0.8-1.0); NEUTROPHILS # (AUTO) 3.7 K/uL (1.8-7.7); NEUTROPHILS % (AUTO) 65.5 % (42.2-75.2); PLATELET COUNT (AUTO) 241 K/uL (140-450); RED BLOOD CELL COUNT(AUTO) 4.36 MIL/uL (4.20-6.10); RED CELL DISTRIBUTION WIDTH 14.4 % (11.6-13.7); WHITE BLOOD COUNT (AUTO) 5.7 K/uL (4.8-10.8)
[2018-05-27 11:48] LABS: APPEARANCE,URINE CLEAR (CLEAR); BILIRUBIN,URINE SMALL (NEGATIVE); BLOOD, URINE NEGATIVE (NEGATIVE); COLOR,URINE YELLOW (YELLOW); LEUKOCYTE ESTERASE ,URINE NEGATIVE (NEGATIVE); NITRITE, URINE NEGATIVE (NEGATIVE); UGLUCOSE NEGATIVE (NEGATIVE)
[2018-05-27 11:48] LABS: ANION GAP 11.6 (8-16); CARBON DIOXIDE 28.3 mmol/L (21-32); CHLORIDE 105 mmol/L (98-107); GFR ARICAN-AMERICAN 98 mL/min (>90); GLUCOSE 169 mg/dL (74-106); POTASSIUM 3.9 mmol/L (3.5-5.1); SODIUM SERUM 141 mmol/L (136-145); UREA NITROGEN, BLOOD 11 mg/dL (7-18)
[2018-05-27 11:55] LABS: ALBUMIN 2.9 g/dL (3.4-5.0); ASPARTATE AMINOTRANSFERASE 43 U/L (15-37); SALICYLATE 3.6 mg/dL (2.8-20.0); TOTAL BILIRUBIN 0.3 mg/dL (0.0-1.0)
[2018-05-27 12:04] LABS: ACETAMINOPHEN < 0.5 ug/ml (10-30)
[2018-05-27 12:10] LABS: BARBITURATE, URINE NEG. ng/ml (NEG <=200); BENZODIAZEPINE, URINE NEG. ng/mL (NEG <=200); CANNABINOID, URINE POS. ng/mL (NEG <=50); COCAINE, URINE NEG. ng/mL (NEG <=300); OPIATE, URINE NEG. ng/mL (NEG <=2000); PHENCYCLIDINE SCREEN,URINE NEG. ng/mL (NEG <=25)
[2018-05-27 12:17] LABS: RBC,URINE 0-5 (RARE) /HPF (0-5); WBC,URINE 0-5 (RARE) /HPF (0-5)
[2018-05-27] MEDS: traMADol 50 MG TAB PO ONE (16:39)
[2018-05-27 19:30] VITALS: BP 124/70
== END 2018-05-27 19:30 ==
LOC: MED 10:51
DX: F29 Unspecified psychosis not due to a substance or known physiological condition (principal); F32.9 Major depressive disorder, single episode, unspecified; R45.851 Suicidal ideations; J44.9 Chronic obstructive pulmonary disease, unspecified; E11.9 Type 2 diabetes mellitus without complications; F17.210 Nicotine dependence, cigarettes, uncomplicated; Z02.89 Encounter for other administrative examinations; Z88.8 Allergy status to other drugs, medicaments and biological substances; Z79.82 Long term (current) use of aspirin; Z79.899 Other long term (current) drug therapy; Z79.84 Long term (current) use of oral hypoglycemic drugs
CPT/HCPCS: 36415; 80053; 80305; 81001; 85025; 99285; G0480; G0482